=== PATIENT | male | born 2000 | race Caucasian/White ===

== ENCOUNTER 2020-11-01 22:36 | Emergency (ER) | payer MEDICAID ==
[~2020-11-01] VITALS: Ht 188 cm; Wt 90.7 kg
[2020-11-01 22:48] VITALS: BP_SYST 185
[2020-11-02] MEDS ORDERED: IBUPROFEN 800 MG TABLET PO ONE (00:45)
[2020-11-02] MEDS ORDERED: IBUPROFEN 800 MG TABLET ONE (00:52)
[2020-11-02 01:17] VITALS: BP_SYST 160
== END 2020-11-02 01:17 | disposition home or self-care (01) ==
LOC: SED 22:36
DX: J02.9 Acute pharyngitis, unspecified (principal)
CPT/HCPCS: 36600; 71045; 82803-TC; 99284

== ENCOUNTER 2021-10-25 01:59 | Emergency (ER) | payer MEDICAID, SELFPAY ==
[~2021-10-25] VITALS: Ht 185.4 cm; Wt 140.6 kg
--- NOTE | 2021-10-25 02:07 | NUR ---
Patient triaged and placed in bed in the tent. VSS and patient appears in no acute distress at this time. Accompanied by his parent, and MD notified of need for MSE.Report given to Tayo CHRISTIAN (Reg)
[2021-10-25 02:10] VITALS: BP_SYST 147
--- NOTE | 2021-10-25 02:22 | NUR ---
PT HAS CHILLS AND SLIGHT BODY ACHES FOR 1 DAY, PARENTS PRESENT AND AT BEDSIDE CURRENTLY. COVID SWAB SENT TO LAB. CARE RESUMED
--- NOTE | 2021-10-25 02:23 | NUR ---
ER examining patient in the tent.
[2021-10-25] MEDS ORDERED: DIPHENHYDRAMINE HCL 12.5 MG/5 ML UDC PO ONE (02:30)
[2021-10-25] MEDS ORDERED: METOCLOPRAMIDE HCL 10 MG TABLET PO ONE (02:30)
[2021-10-25] MEDS ORDERED: METOCLOPRAMIDE HCL 10 MG TABLET ONE (02:47)
--- NOTE | 2021-10-25 02:52 | NUR ---
meds given and aware that flu swab can not be obtained d/t inventory of supply
[2021-10-25] MEDS ORDERED: ONDA-8 TL (03:17)
[2021-10-25 03:27] VITALS: BP_SYST 147
--- NOTE | 2021-10-25 03:28 | NUR ---
PT GIVEN D/C INSTRUCTIONS ADN PARENTS PRESENT AT BEDSIDE. PT AMBULATED TO OWN CARE UPON D/C OME, PT VERBALIZED UNDERSTANDING
== END 2021-10-25 03:28 | disposition home or self-care (01) ==
LOC: SED 01:59
DX: U07.1 COVID-19 (principal); R51.9 Headache, unspecified; R50.9 Fever, unspecified
CPT/HCPCS: 87426; 99283; J8597; 36415

== ENCOUNTER 2022-07-25 02:34 | Emergency (ER) | payer MEDICAID ==
[~2022-07-25] VITALS: Ht 182.9 cm; Wt 115.7 kg
[~2022-07-25 02:34] MED LIST: ONDA-8 TL
[2022-07-25 02:37] VITALS: BP_SYST 130
[2022-07-25] MEDS ORDERED: KETOROLAC TROMETHAMINE 60 MG/2 ML VIAL IM ONE (03:00)
[2022-07-25] MEDS ORDERED: NAPR-1172 PO (03:11)
== END 2022-07-25 03:17 | disposition home or self-care (01) ==
LOC: SED 02:34
DX: M54.50 Low back pain, unspecified (principal); G89.29 Other chronic pain; Z79.899 Other long term (current) drug therapy
CPT/HCPCS: 99283; 96372; J1885

== ENCOUNTER 2022-08-21 05:49 | Emergency (ER) | payer MEDICAID ==
[~2022-08-21] VITALS: Ht 182.9 cm; Wt 113.4 kg
[~2022-08-21 05:49] MED LIST changes: +NAPR-1172 PO
[2022-08-21 06:02] VITALS: BP_SYST 149
[2022-08-21] MEDS ORDERED: ONDANSETRON 4 MG ODT TAB ONE (06:08)
[2022-08-21] MEDS ORDERED: ONDANSETRON 4 MG ODT TAB PO ONE (06:15)
[2022-08-21] MEDS ORDERED: DICYCLOMINE HCL 10 MG/5 ML SOLUTION PO ONE (06:30)
[2022-08-21] MEDS ORDERED: ACETAMINOPHEN 500 MG TABLET PO ONE (06:30)
[2022-08-21] MEDS ORDERED: ACET-2634 PO (08:26)
[2022-08-21] MEDS ORDERED: ONDA-8 TL (08:26)
[2022-08-21 08:41] VITALS: BP_SYST 149
== END 2022-08-21 08:43 | disposition home or self-care (01) ==
LOC: SED 05:49
DX: R11.2 Nausea with vomiting, unspecified (principal); J02.9 Acute pharyngitis, unspecified; R53.81 Other malaise; F12.90 Cannabis use, unspecified, uncomplicated; Z79.899 Other long term (current) drug therapy; Z20.822 Contact with and (suspected) exposure to COVID-19
CPT/HCPCS: 99284; 87426; 87804 ×2; Q0162

== ENCOUNTER 2024-03-08 03:40 | Emergency (ER) | payer MEDICAID ==
[~2024-03-08] VITALS: Ht 185.4 cm; Wt 143.8 kg
[~2024-03-08 03:40] MED LIST changes: +ACET-2634 PO
[2024-03-08 03:51] VITALS: BP_SYST 160; PULSE 90; RESP 20; TEMP 97.6; O2SAT 97
[2024-03-08 04:26] LABS: BILIRUBIN,URINE 2+ (NEGATIVE); CLARITY/URINE SL CLOUDY (CLEAR); GLUCOSE,URINE NEGATIVE (NEGATIVE); KETONES,URINE 3+ (NEGATIVE); LEUKOCYTE ESTERASE ,URINE NEGATIVE (NEGATIVE); NITRITE, URINE NEGATIVE (NEGATIVE); PROTEIN URINE 1+ (NEGATIVE)
[2024-03-08 04:36] LABS: BLOOD, URINE TRACE (NEGATIVE); COLOR,URINE YELLOW (YELLOW)
[2024-03-08 04:57] LABS: BASOPHILS # (AUTO) 0.1 K/uL (0.0-0.2); BASOPHILS % (AUTO) 0.7 % (0.0-2.0); EOSINOPHILS % (AUTO) 0.3 % (0.0-4.0); HEMATOCRIT 41.3 % (36-54); HEMOGLOBIN 14.3 g/dL (14.0-18.0); LYMPHOCYTES # (AUTO) 2.6 K/uL (1.0-5.5); LYMPHOCYTES % (AUTO) 24.1 % (20.5-51.5); MEAN CORPUSCULAR HEMOGLOBIN 29 pg (27-31); MEAN CORPUSCULAR HGB CONC 35 % (32-36); MEAN CORPUSCULAR VOLUME 83 fL (79.0-98.0); MONOCYTES # (AUTO) 0.8 K/uL (0.0-1.0); MONOCYTES % (AUTO) 7.5 % (1.7-9.3); NEUTROPHILS # (AUTO) 7.3 K/uL (1.8-7.7); NEUTROPHILS % (AUTO) 67.4 % (40.0-70.0); PLATELET COUNT (AUTO) 246 K/uL (130-430); RED BLOOD CELL COUNT(AUTO) 4.97 MIL/uL (4.2-6.2); RED CELL DISTRIBUTION WIDTH 13.9 % (9.0-15.0); WHITE BLOOD COUNT (AUTO) 10.9 K/uL (4.8-10.8)
[2024-03-08 05:01] LABS: BACTERIA,URINE None Seen /HPF (None Seen); MUCUS,URINE 1+ /LPF (None Seen); WBC,URINE 0-3 /HPF (0-3)
[2024-03-08 05:15] LABS: ALBUMIN 3.8 g/dL (3.4-4.8); CALCIUM 8.3 mg/dL (8.4-11.0); CREATININE 0.89 mg/dL (0.55-1.30); POTASSIUM 3.5 mmol/L (3.5-5.1); TOTAL BILIRUBIN 0.9 mg/dL (0.0-1.0)
[2024-03-08 07:47] LABS: POTASSIUM 3.6 mmol/L (3.5-5.1)
[2024-03-08 07:48] LABS: CALCIUM 8.9 mg/dL (8.4-11.0); CREATININE 0.85 mg/dL (0.55-1.30)
[2024-03-08 08:42] LABS: BILIRUBIN,URINE 2+ (NEGATIVE); CLARITY/URINE SLIGHTLY HAZY (CLEAR); COLOR,URINE Y (YELLOW); GLUCOSE,URINE NEGATIVE (NEGATIVE); KETONES,URINE 3+ (NEGATIVE); PROTEIN URINE 1+ (NEGATIVE)
[2024-03-08 08:43] LABS: BLOOD, URINE 1+ (NEGATIVE); LEUKOCYTE ESTERASE ,URINE NEGATIVE (NEGATIVE); NITRITE, URINE NEGATIVE (NEGATIVE); UROBILINOGEN,URINE 0.2 (0.2-1.0)
[2024-03-08 08:52] LABS: BACTERIA,URINE RARE /HPF (None Seen); MUCUS,URINE 1+ /LPF (None Seen); RBC,URINE 0-3 /HPF (0-3); WBC,URINE 0-3 /HPF (0-3)
[2024-03-08] MEDS ORDERED: PHEN-726 PO (09:41)
[2024-03-08 09:46] VITALS: BP_SYST 160; PULSE 90; RESP 20; TEMP 97.6; O2SAT 97
== END 2024-03-08 09:45 | disposition home or self-care (01) ==
LOC: SED 03:40
DX: R30.0 Dysuria (principal)
CPT/HCPCS: 36415; 80048; 80053; 81000; 81001; 81015; 83605; 85025; 99284